=== PATIENT | male | born 1990 | race African-American/Black ===

== ENCOUNTER 2017-02-01 04:24 | Emergency (ER) | payer SELFPAY ==
[~2017-02-01] VITALS: Ht 190.5 cm; Wt 76.7 kg
[~2017-02-01 04:24] MED LIST: ACYCLOVIR400 MG ORAL; ACYCLOVIR800 MG ORAL; ALBUTEROL SULF8.5 GM INH; AQUAPHOR OINTM396 GM TP; HYDROXYZINE HCL25 M1 PO; IBUPROFEN600 MG ORAL; KENALOG 0.025%15 GM APPLIC; KENALOG 0.025%15 GM TOPIC; KENALOG 0.1% CR15 GM APPLIC; KENALOG1 APPLIC TOPIC; PREDNISONE20 MG ORAL; PROAIR HFA8.5 GM INH; ROBAXIN-750750 MG PO; SINGULAIR10 MG ORAL; TRIAMCINOLONE A15 G2 TP; ZOVIRAX800 MG ORAL
[2017-02-01 04:35] VITALS: BP 107/70
[2017-02-01] MEDS ORDERED: ZOVIRAX800 MG ORAL (04:38)
[2017-02-01] MEDS ORDERED: TRIAMCINOLONE A15 G2 TP (04:38)
[2017-02-01 04:43] VITALS: BP 107/70
--- NOTE | 2017-02-01 04:45 | Emergency Room Report ---
History of Present Illness General Chief Complaint: Medication Refill Source: Patient, Medical Record Present Illness HPI 26-year-old male walks in with request for medication refills for eczema, states he takes triamcinolone ointment usually has lesions on bilateral antecubital fossa. Also concern he is having a breakout of herpes simplex virus on face, but denies any new ulcers or vesicles or areas of irritation. Denies blurred vision , change in vision. Denies headache, neck pain/stiffness. States doesn't have insurance anymore, does not primary care doctor anymore unable to followup outside of ER Patient has multiple visits here in the past for medication refill for similar complaints Allergies: Uncoded Allergies: seafood (Allergy, Unknown, itchy and swelling, 02/07/16) Patient History Past Medical History: none Past Surgical History: none Pertinent Family History: none Social History: Denies: smoking, alcohol use, drug use Immunizations: UTD Reviewed Nursing Documentation: PMH: Agreed, PSxH: Agreed Nursing Documentation-PMH Hx Pacemaker: No Hx Asthma: Yes - and bronchitis Review of Systems All Other Systems: negative except mentioned in HPI Physical Exam Vital Signs Date Time Temp Pulse Resp B/P (MAP) Pulse Ox O2 Delivery O2 Flow Rate FiO2 02/01/17 04:28 97.2 69 18 107/70 98 Room Air Sp02 EP Interpretation: reviewed, normal General Appearance: normal inspection, well appearing, no apparent distress, alert, GCS 15, non-toxic Head: normocephalic, atraumatic Eyes: bilateral eye PERRL, bilateral eye EOMI ENT: normal ENT inspection, hearing grossly normal, normal voice Neck: normal inspection, full range of motion, supple, no bony tend Respiratory: normal inspection, lungs clear, normal breath sounds, no respiratory distress, no retraction, no wheezing Cardiovascular #1: regular rate, rhythm, no edema Gastrointestinal: normal inspection, normal bowel sounds, non tender, soft, no guarding, no hernia Genitourinary: no CVA tenderness Musculoskeletal: normal inspection, back normal, normal range of motion, Sparkle' s Sign negative Neurologic: normal inspection, alert, oriented x3, responsive, professional housing consultant III-XII nml as tested, speech normal Psychiatric: normal inspection, judgement/insight normal, mood/affect normal Skin: normal inspection, normal color, other - dry flaking skin on UE antecubital fossa. No ulcerations or vesicles on face/lips/mouth Medical Decision Making Diagnostic Impression: Primary Impression: Recurrent oral herpes simplex Additional Impressions: Eczema Qualified Codes: L30.9 - Dermatitis, unspecified Medication refill ER Course Mild eczema on upper extremities, triamcinolone ointment prescription provided Given recurrence of oral herpes simplex virus and multiple visits documented for same, patient feels like outbreak is imminent, will give acyclovir as recommended by up-to-date to be given soon within initial outbreak of symptoms Encourage patient followup with primary care doctor, establish insurance ER course: Patient has remained stable during ED stay. Disposition: Patient is to be discharged to home. Prescriptions given are acyclovir, triamcinolone Patient is instructed to follow up with their primary care doctor within 5 days. Strict return precautions discussed with patient such as fever, chills, worsening/severe pain, nausea, vomiting, which may indicate severe illness. Patient verbalizes understanding and agrees with plan. Please note that this Emergency Department Report was dictated using [employer] manager technology software, occasionally this can lead to erroneous entry secondary to interpretation by the dictation equipment Last Vital Signs Date Time Temp Pulse Resp B/P (MAP) Pulse Ox O2 Delivery O2 Flow Rate FiO2 02/01/17 04:28 97.2 69 18 107/70 98 Room Air Status: improved Disposition: HOME, SELF-CARE Condition: Improved Scripts Acyclovir* (ZOVIRAX*) 800 Mg Tablet 800 MG ORAL THREE TIMES A DAY for 2 Days, #6 CAP 0 Refills Prov: RUSH MAYER M.D. 02/01/17 Triamcinolone Acetonide (TRIAMCINOLONE ACETONIDE) 15 Gm Oint...g. 15 GM TP BID for 7 Days, GM Prov: RUSH MAYER M.D. 02/01/17 Patient Instructions: Medicine Refill at the Emergency Department RUSH MAYER M.D. Feb 01, 2017 04:45
== END 2017-02-01 04:50 | disposition home or self-care (01) ==
LOC: EMR 04:44
DX: B00.1 Herpesviral vesicular dermatitis (principal); L30.9 Dermatitis, unspecified; Z76.0 Encounter for issue of repeat prescription; Z91.013 Allergy to seafood; J45.909 Unspecified asthma, uncomplicated
CPT/HCPCS: 99283

== ENCOUNTER 2017-02-25 00:29 | Emergency (ER) | payer SELFPAY ==
[~2017-02-25] VITALS: Ht 188 cm; Wt 79.4 kg
[2017-02-25 00:43] VITALS: BP 107/63
[2017-02-25] MEDS ORDERED: ZOVIRAX200 MG PO (01:27)
--- NOTE | 2017-02-25 01:27 | Emergency Room Report ---
History of Present Illness General Chief Complaint: General Complaint Source: Patient Present Illness [facility] This is a 26-year-old male with a history of herpes outbreak. He presents with chief complaint of dysuria. Also with a rash on his penis. Onset for the last 3 days. Couple weeks ago he was treated for Chlamydia. No nausea no vomiting. No discharge. Denies any other complaint. Is sexually active. Allergies: Uncoded Allergies: seafood (Allergy, Unknown, itchy and swelling, 02/07/16) Patient History Past Medical History: see triage record, old chart reviewed Past Surgical History: none Pertinent Family History: none Social History: Denies: drug use Immunizations: other Reviewed Nursing Documentation: PMH: Agreed, PSxH: Agreed Nursing Documentation-PMH Hx Pacemaker: No Hx Asthma: Yes - and bronchitis Review of Systems Eye: Denies: eye pain, blurred vision ENT: Denies: ear pain, nose congestion, throat swelling Respiratory: Denies: cough, shortness of breath Cardiovascular: Denies: chest pain, palpitations Gastrointestinal: Denies: abdominal pain, diarrhea, nausea, vomiting Musculoskeletal: Denies: back pain, joint pain Skin: Denies: rash Neurological: Denies: headache, numbness Endocrine: Denies: increased thirst, increased urine Hematologic/Lymphatic: Denies: easy bruising All Other Systems: negative except mentioned in HPI Physical Exam Vital Signs Date Time Temp Pulse Resp B/P (MAP) Pulse Ox O2 Delivery O2 Flow Rate FiO2 02/25/17 00:34 97.7 65 18 107/63 97 Room Air vitals normal Sp02 EP Interpretation: reviewed, normal General Appearance: well appearing, no apparent distress, alert Head: normocephalic, atraumatic Eyes: bilateral eye PERRL, bilateral eye EOMI ENT: hearing grossly normal, normal pharynx Neck: full range of motion, supple, no meningismus Respiratory: chest non-tender, lungs clear, normal breath sounds Cardiovascular #1: regular rate, rhythm, no murmur Gastrointestinal: normal bowel sounds, non tender, no mass, no organomegaly, no bruit, non-distended Genitourinary: other - Vesicular lesion the base of the shaft the dorsal aspect of the penis. No penile discharge. No testicular tenderness. Musculoskeletal: back normal, gait/station normal, normal range of motion Psychiatric: mood/affect normal Skin: warm/dry Medical Decision Making Diagnostic Impression: Primary Impression: Genital herpes Qualified Codes: A60.01 - Herpesviral infection of penis ER Course Patient with to her herpes. We'll discharge on acyclovir. Last Vital Signs Date Time Temp Pulse Resp B/P (MAP) Pulse Ox O2 Delivery O2 Flow Rate FiO2 02/25/17 00:43 97.7 65 18 107/63 97 Room Air Status: unchanged Disposition: HOME, SELF-CARE Condition: Stable Scripts Acyclovir (Acyclovir) 200 Mg Capsule 400 MG PO TID for 10 Days, CAP Prov: SONIA DE LOS SANTOS M.D. 02/25/17 Referrals: NOT CHOSEN IPA/,REFERRING (PCP) Additional Instructions: Followup with your Dr. in 7 days. Return if symptom worsen. SONIA DE LOS SANTOS M.D. Feb 25, 2017 01:27
[2017-02-25 01:41] VITALS: BP 107/63
== END 2017-02-25 01:41 | disposition home or self-care (01) ==
LOC: EMR 00:55
DX: A60.00 Herpesviral infection of urogenital system, unspecified (principal); J45.909 Unspecified asthma, uncomplicated
CPT/HCPCS: 99283

== ENCOUNTER 2020-04-21 00:15 | Emergency (ER) | payer MEDICAID ==
[~2020-04-21] VITALS: Ht 188 cm; Wt 79.4 kg
[~2020-04-21 00:15] MED LIST changes: +IBUPROFEN600 M1 ORAL; +MUPIROCIN22 GM TOPIC; +ZOVIRAX200 MG PO
--- NOTE | 2020-04-21 00:23 | NUR ---
ED Nurse Note: Pt walked into ED due to staple removal on right side of head and posssible new splint on left hand. Pt has no pain, fever or any s/s of infection. vitals are stable.
[2020-04-21 00:26] VITALS: BP 95/57
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
[2020-04-21 01:00] VITALS: BP 95/57
--- NOTE | 2020-04-21 01:00 | NUR ---
ER DISCHARGE NOTE: Patient is cleared to be discharged per ERMD, pt is aox4, on room air, with stable vital signs. pt was given dc instructions, pt was able to verbalize understanding, pt id band removed without complications. pt is able to ambulate with steady gait. pt took all belongings.
== END 2020-04-21 01:00 | disposition home or self-care (01) ==
LOC: EMR 00:45
DX: Z48.02 Encounter for removal of sutures (principal)
CPT/HCPCS: 99281